=== PATIENT | male | born 1950 | race Caucasian/White ===

== ENCOUNTER 2017-02-17 19:58 | Inpatient (IN) | payer MEDICARE, OTHER ==
[2017-02-17 20:20] LABS: BASOPHIL 0.5 % (0-2); EOSINOPHIL 2.1 % (0-7); HCT 43.8 % (42.0-52.0); HGB 14.7 g/dl (13.2-18.0); LYMPHOCYTE 37.4 % (15-48); MCH 28.7 pg (25.0-31.0); MCHC 33.6 g/dL (32.0-36.0); MCV 85.4 fL (78.0-100.0); MONOCYTE 8.6 % (0-12); MPV 8.8 fL (6.0-9.5); NEUTROPHIL 51.4 % (41-80); PLT 210 K/uL (150-400); RBC 5.13 M/uL (4.70-6.00); RDW 15.2 % (11.5-14.0); WBC 10.4 K/uL (4.0-10.5)
[2017-02-17 20:28] LABS: INR 1.4 (0.9-1.2); PROTHROMBIN TIME 16.7 SECONDS (11.7-14.0); PTT 30.6 SECONDS (23.2-31.4)
[2017-02-17 20:36] LABS: ALBUMIN 4.3 g/dL (3.4-4.8); BILIRUBIN - TOTAL 0.3 mg/dL (0.1-1.0); GLOBULIN (CALCULATION) 2.3 g/dL (2.2-4.2); MAGNESIUM 2.24 mg/dL (1.40-2.10); POTASSIUM 3.6 mmol/L (3.5-5.1); TOTAL PROTEIN 6.6 g/dL (6.4-8.3)
[2017-02-17 20:39] LABS: MYOGLOBIN 65 ng/mL (26-65); TROPONIN T < 0.010 ng/mL
[2017-02-17 20:40] LABS: CKMB 6.89 ng/mL (0.97-4.94); PRO-BNP 227 pg/mL (0-125)
[2017-02-18 02:19] LABS: BASOPHIL 0.3 % (0-2); EOSINOPHIL 0.3 % (0-7); HCT 44.2 % (42.0-52.0); LYMPHOCYTE 14.8 % (15-48); MCH 29.1 pg (25.0-31.0); MCHC 33.9 g/dL (32.0-36.0); MCV 85.7 fL (78.0-100.0); MONOCYTE 0.7 % (0-12); MPV 9.1 fL (6.0-9.5); NEUTROPHIL 83.9 % (41-80); PLT 196 K/uL (150-400); RBC 5.16 M/uL (4.70-6.00); RDW 15.1 % (11.5-14.0)
[2017-02-18 02:40] LABS: TROPONIN T < 0.010 ng/mL
[2017-02-18 02:47] LABS: CKMB 7.12 ng/mL (0.97-4.94)
[2017-02-18 02:59] LABS: CREATININE 1.2 mg/dL (0.7-1.2); POTASSIUM 3.9 mmol/L (3.5-5.1)
[2017-02-18 08:55] LABS: TROPONIN T < 0.010 ng/mL
[2017-02-19 04:38] LABS: HCT 41.6 % (42.0-52.0); HGB 13.5 g/dl (13.2-18.0); MCH 28.5 pg (25.0-31.0); MCHC 32.5 g/dL (32.0-36.0); MCV 87.9 fL (78.0-100.0); MPV 9.3 fL (6.0-9.5); RBC 4.73 M/uL (4.70-6.00); RDW 15.3 % (11.5-14.0)
[2017-02-19 04:41] LABS: WBC 13.5 K/uL (4.0-10.5)
[2017-02-19 04:54] LABS: POTASSIUM 4.3 mmol/L (3.5-5.1)
[2017-02-20 04:02] LABS: HCT 42.8 % (42.0-52.0); HGB 13.7 g/dl (13.2-18.0); MCH 28.1 pg (25.0-31.0); MCV 87.9 fL (78.0-100.0); RBC 4.87 M/uL (4.70-6.00); RDW 15.4 % (11.5-14.0); WBC 11.6 K/uL (4.0-10.5)
[2017-02-20 04:12] LABS: INR 1.17 (0.9-1.2); PROTHROMBIN TIME 14.5 SECONDS (11.7-14.0); PTT 23.7 SECONDS (23.2-31.4)
[2017-02-20 04:23] LABS: POTASSIUM 4.5 mmol/L (3.5-5.1)
== END 2017-02-20 08:23 | disposition other institution (70) | DRG 189 ==
LOC: FER 19:58 → FICU 22:00
PROVIDERS: Emergency Medicine Emergency Medical Services; Internal Medicine; ADMIT Internal Medicine
DX: J96.21 Acute and chronic respiratory failure with hypoxia (principal); I48.91 Unspecified atrial fibrillation; J44.0 Chronic obstructive pulmonary disease with (acute) lower respiratory infection; I24.9 Acute ischemic heart disease, unspecified; J44.1 Chronic obstructive pulmonary disease with (acute) exacerbation; E11.9 Type 2 diabetes mellitus without complications; J20.9 Acute bronchitis, unspecified; I10 Essential (primary) hypertension; N40.0 Benign prostatic hyperplasia without lower urinary tract symptoms; M19.90 Unspecified osteoarthritis, unspecified site; E78.5 Hyperlipidemia, unspecified; Z79.01 Long term (current) use of anticoagulants; F17.210 Nicotine dependence, cigarettes, uncomplicated; Z80.1 Family history of malignant neoplasm of trachea, bronchus and lung; Z80.7 Family history of other malignant neoplasms of lymphoid, hematopoietic and related tissues; I70.209 Unspecified atherosclerosis of native arteries of extremities, unspecified extremity
CPT/HCPCS: 36415; 36600; 71010; 80048; 80053; 82009; 82550; 82553; 82803; 82962; 83036; 83735; 83874; 83880; 84443; 84484; 85025; 85610; 85730; 87040; 92526; 93005; 94010; 94640; 94760; 96372; J1956; J2270; J2405; J2930

== ENCOUNTER 2020-11-02 20:01 | Emergency (ER) | payer MEDICARE ==
[~2020-11-02 20:01] MED LIST: PREDNISONE 20MG20 MG PO
[2020-11-02 20:21] LABS: BASOPHIL 0.8 % (0-2); EOSINOPHIL 1.1 % (0-7); HCT 46.9 % (42.0-52.0); HGB 13.7 g/dl (13.2-18.0); LYMPHOCYTE 51.4 % (15-48); MCH 28.7 pg (25.0-31.0); MCHC 29.2 g/dL (32.0-36.0); MCV 98.1 fL (78.0-100.0); MONOCYTE 6.1 % (0-12); MPV 10.3 fL (6.0-9.5); NEUTROPHIL 33.3 % (41-80); NRBC 0.4; PLT 166 K/uL (150-400); RBC 4.78 M/uL (4.70-6.00); WBC 14.3 K/uL (4.0-10.5)
[2020-11-02 20:30] LABS: INR 1.58 (0.9-1.2); PROTHROMBIN TIME 17.9 SECONDS (11.4-13.6); PTT 30.3 SECONDS (22.2-34.7)
[2020-11-02 20:39] LABS: ALBUMIN 2.9 g/dL (3.4-5.0); BILIRUBIN - TOTAL 0.3 mg/dL (0.2-1.0); BUN/CREAT RATIO (CALC) 13.3 RATIO; CREATININE 1.05 mg/dL (0.67-1.17); GLOBULIN (CALCULATION) 2.9 g/dL; TOTAL PROTEIN 5.8 g/dL (6.4-8.2)
== END 2020-11-02 21:00 | disposition expired ==
LOC: FER 20:01
PROVIDERS: Emergency Medicine
DX: I46.9 Cardiac arrest, cause unspecified (principal); I21.09 ST elevation (STEMI) myocardial infarction involving other coronary artery of anterior wall; J44.9 Chronic obstructive pulmonary disease, unspecified; F17.200 Nicotine dependence, unspecified, uncomplicated; Z20.822 Contact with and (suspected) exposure to COVID-19
CPT/HCPCS: 36415; 36600; 71045; 80053; 82550; 82553; 82803; 83605; 85025; 85610; 85730; 92950; 93005; 94002; J0171; J0282; J0461; J0610; J1250; U0002